=== PATIENT | female | born 1995 | race Caucasian/White ===

== ENCOUNTER 2017-11-17 08:27 | Emergency (ER) | payer OTHER ==
[2017-11-17] MEDS ORDERED: NS 1,000 ML IV ONE ×2 (08:49→11:00)
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
[2017-11-17 09:27] LABS: PLATELET COUNT 225 10^3/uL (150-400)
[2017-11-17] MEDS ORDERED: fentaNYL 100 MCG/2 ML INJ IVP ONE (10:01)
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
[2017-11-17 10:24] LABS: INR 1.01 (0.83-1.16); PROTIME(PATIENT) 13.5 SEC (12.0-15.0)
[2017-11-17] MEDS ORDERED: ONDANSETRON 4 MG/2 ML VIAL IVP ONE (12:01)
[2017-11-17 12:40] VITALS: BP 91/57
== END 2017-11-17 12:38 | disposition home or self-care (01) ==
PROC: 0HQAXZZ Repair Inguinal Skin, External Approach (ICD-10-PCS; principal; 2017-11-17)
DX: S31.41XA Laceration without foreign body of vagina and vulva, initial encounter (principal); D62 Acute posthemorrhagic anemia; E86.9 Volume depletion, unspecified; X58.XXXA Exposure to other specified factors, initial encounter
CPT/HCPCS: 82435-PO; 82565-PO; 82947-PO; 84132-PO; 84295-PO; 84520-PO; 85014-PO; 96374; J2405; J3010